=== PATIENT | female | born 1975 | race African-American/Black ===

== ENCOUNTER 2020-06-18 10:28 | Day surgery (SDC) | payer BC ==
[2020-06-16 15:12] VITALS: BMI 40.1
[2020-06-18 12:37] VITALS: BP 110/65; PULSE 78; TEMP 98
--- NOTE | 2020-06-22 17:06 | PATH ---
Surgical Pathology Report Patient Name: CLEMENTE CASTANO Med. Rec. #: [id number] /Age/Gender: 1975 (Age: 44) / F Account: [id number] Location: [facility] Taken: 06/18/2020 Received: 06/18/2020 Reported: 06/22/2020 Physicians: Gosia Slater M.D. Specimen(s) Received A: LIPOMATOUS TI VALVE B: TRANSVERSE COLON POLYP SNARE C: SIGMOID POLYP Clinical History Screening Postoperative diagnosis: Diverticulitis and hemorrhoids Final Diagnosis A. LIPOMATOUS TI VALVE, BIOPSY: COLONIC MUCOSA SHOWING FOCAL ACTIVE COLITIS. Note: No lipomatous component is identified. B. TRANSVERSE COLON, POLYP, POLYPECTOMY: SESSILE SERRATED POLYP. C. SIGMOID, POLYP, BIOPSY: SESSILE SERRATED POLYP. Electronically Signed Genveieve Alan M.D. Gross Description A. Received in formalin, labeled "lipomatous TI valve" is a quigley, irregular portion of soft tissue measuring 0.3 cm. in greatest dimension. The specimen is submitted in toto in one cassette. B. Received in formalin, labeled "transverse colon polyp" are 4 quigley, irregular portions of soft tissue ranging from 0.1-1.2 cm. in greatest dimension. The specimens are submitted in toto in one cassette. C. Received in formalin, labeled "sigmoid polyp" is a quigley, irregular portion of soft tissue measuring 0.3 cm. in greatest dimension. The specimen is submitted in toto in one cassette. 06/21/2020 saudi06/21/2020
== END 2020-06-18 12:45 | disposition home or self-care (01) ==
LOC: FASU 10:28
PROVIDERS: ATTEND Internal Medicine Gastroenterology
PROC: 0DBK8ZX Excision of Ascending Colon, Via Natural or Artificial Opening Endoscopic, Diagnostic (ICD-10-PCS; 2020-06-18)
PROC: 0DBN8ZX Excision of Sigmoid Colon, Via Natural or Artificial Opening Endoscopic, Diagnostic (ICD-10-PCS; 2020-06-18)
PROC: 0DBL8ZX Excision of Transverse Colon, Via Natural or Artificial Opening Endoscopic, Diagnostic (ICD-10-PCS; principal; 2020-06-18 11:21)
DX: Z12.11 Encounter for screening for malignant neoplasm of colon (principal); D12.3 Benign neoplasm of transverse colon; D12.5 Benign neoplasm of sigmoid colon; K52.89 Other specified noninfective gastroenteritis and colitis; K57.30 Diverticulosis of large intestine without perforation or abscess without bleeding; K64.0 First degree hemorrhoids
CPT/HCPCS: 81025; 88304-TC; 88305-TC

== ENCOUNTER 2024-06-13 11:33 | Day surgery (SDC) | payer BC ==
[2024-06-11 12:21] VITALS: BMI 31.3
[2024-06-13 11:50] VITALS: RESP 16
[2024-06-13 13:16] VITALS: TEMP 97.4
[2024-06-13 13:29] VITALS: BP 102/65; PULSE 66
== END 2024-06-13 14:02 | disposition home or self-care (01) ==
LOC: FASU-ENDO 11:33
PROVIDERS: ATTEND Internal Medicine Gastroenterology
PROC: 0DB68ZX Excision of Stomach, Via Natural or Artificial Opening Endoscopic, Diagnostic (ICD-10-PCS; 2024-06-13)
PROC: 0DB48ZX Excision of Esophagogastric Junction, Via Natural or Artificial Opening Endoscopic, Diagnostic (ICD-10-PCS; 2024-06-13)
PROC: 0DB98ZX Excision of Duodenum, Via Natural or Artificial Opening Endoscopic, Diagnostic (ICD-10-PCS; principal; 2024-06-13 12:48)
DX: K29.50 Unspecified chronic gastritis without bleeding (principal); K21.00 Gastro-esophageal reflux disease with esophagitis, without bleeding; K31.7 Polyp of stomach and duodenum; E78.70 Disorder of bile acid and cholesterol metabolism, unspecified; R10.13 Epigastric pain
CPT/HCPCS: 81025; 88305-TC; 88342-TC